=== PATIENT | male | born 1990 | race Caucasian/White ===

== ENCOUNTER 2019-11-18 07:06 | Day surgery (SDC) | payer BC ==
[~2019-11-18] VITALS: Ht 185.4 cm; Wt 134.2 kg
[~2019-11-18 07:06] MED LIST: OMEPRAZOLE20 MG PO; TERB250 PO
[2019-11-18] MEDS ORDERED: IBUP200 (07:49)
--- NOTE | 2019-11-18 08:58 | NUR ---
11/18/19 0858 Lulu Barth DELAYED ENTRY 0823 4%LIDOCAINE UPDRAFT 5ML PRIOR TO TRANSFER TO OR
== END 2019-11-18 09:08 | disposition home or self-care (01) ==
LOC: ORSCSDS 07:06
PROVIDERS: Internal Medicine Gastroenterology
PROC: 0DB68ZX Excision of Stomach, Via Natural or Artificial Opening Endoscopic, Diagnostic (ICD-10-PCS; principal; 2019-11-18 08:30)
PROC: 0DB58ZX Excision of Esophagus, Via Natural or Artificial Opening Endoscopic, Diagnostic (ICD-10-PCS; principal; 2019-11-18 08:30)
DX: R13.10 Dysphagia, unspecified (principal); K25.9 Gastric ulcer, unspecified as acute or chronic, without hemorrhage or perforation; E66.9 Obesity, unspecified; Z68.39 Body mass index [BMI] 39.0-39.9, adult
CPT/HCPCS: 88305; 88342; J0330; J0461; J2001; J2405; J2704; J7120